=== PATIENT | male | born 1955 | race Caucasian/White ===

== ENCOUNTER → 2016-09-18 | Outpatient (CLI) | payer BC | LOC: GMAM 11:01 | PROVIDERS: ATTEND Family Medicine | DX: E03.9 Hypothyroidism, unspecified (principal); M10.9 Gout, unspecified ==

== ENCOUNTER → 2017-05-07 | Outpatient (CLI) | payer BC | END | disposition home or self-care (01) | LOC: GMAM 10:05 | PROVIDERS: ATTEND Family Medicine | DX: E03.9 Hypothyroidism, unspecified (principal); Z12.5 Encounter for screening for malignant neoplasm of prostate; M10.9 Gout, unspecified; E55.9 Vitamin D deficiency, unspecified ==

== ENCOUNTER → 2018-02-18 | Outpatient (CLI) | payer BC | LOC: GMAM 10:31 | PROVIDERS: ATTEND Family Medicine | DX: E55.9 Vitamin D deficiency, unspecified (principal); E03.9 Hypothyroidism, unspecified; Z12.5 Encounter for screening for malignant neoplasm of prostate ==

== ENCOUNTER → 2018-06-03 | Outpatient (CLI) | payer OTHER | LOC: LAB.O 07:34 | PROVIDERS: ATTEND Family Medicine | DX: I10 Essential (primary) hypertension (principal); E03.9 Hypothyroidism, unspecified; E11.9 Type 2 diabetes mellitus without complications; E78.5 Hyperlipidemia, unspecified ==

== ENCOUNTER → 2018-11-12 | Outpatient (CLI) | payer BC | LOC: GMAM 10:26 | PROVIDERS: ATTEND Family Medicine | DX: E03.9 Hypothyroidism, unspecified (principal) ==

== ENCOUNTER → 2019-03-02 | Outpatient (CLI) | payer BC | LOC: GMAM 10:23 | PROVIDERS: ATTEND Family Medicine | DX: I20.9 Angina pectoris, unspecified (principal); Z12.5 Encounter for screening for malignant neoplasm of prostate ==

== ENCOUNTER → 2019-06-19 | Outpatient (CLI) | payer OTHER | LOC: GMAM 12:19 | PROVIDERS: ATTEND Family Medicine | DX: Z00.00 Encounter for general adult medical examination without abnormal findings (principal); E11.9 Type 2 diabetes mellitus without complications; E03.9 Hypothyroidism, unspecified ==

== ENCOUNTER 2020-07-30 11:47 | Observation (INO) | payer OTHER ==
[2020-07-30] MEDS ORDERED: guaiFENesin/DEXTROMETH SYRUP 5 ML UD PO ONE (11:56)
[2020-07-30] MEDS ORDERED: BENZONATATE PERLES 100 MG CAP PO ONE (11:56)
--- NOTE | 2020-07-30 12:00 | ED.PDOC ---
History of Present Illness - General Chief Complaint: Respiratory Problem Time Seen by Provider: 07/30/20 11:50 Source: patient, family Exam Limitations: no limitations - History of Present Illness Comments: The patient is a 65 year old with PMH significant for HTN, DM, HLD, CAD, hypothyroidism who presents complaining of cough and coronavirus exposure. He states that he has had cough and chest congestion for one week with subjective fevers and chills. Tmax at home is 99%. He does not feel short of breath except for the cough. He is not producing any sputum. He denies changes to taste/smell, vomiting, diarrhea or any other symptoms. He reports that he was around multiple family members who tested positive for COVID. He does note that he has difficulty laying flat at night to sleep but thinks that it is due to the coughing. No other complaints at this time. Allergies/Adverse Reactions: Allergies Butalbital [From Fiorinal] Allergy (Verified 07/30/20 12:06) Codeine Allergy (Verified 07/30/20 12:06) Metformin Allergy (Verified 07/30/20 12:06) Penicillins Allergy (Verified 07/30/20 12:06) Sulfa Antibiotics Allergy (Verified 07/30/20 12:06) Home Medications: Ambulatory Orders Ibuprofen [Advil] 200 mg PO PRN 12/26/13 Levothyroxine Sodium 175 mcg PO DAILY 12/26/13 Lisinopril 10 mg PO DAILY 12/26/13 Pantoprazole Sodium [Protonix] 40 mg PO DAILY 12/26/13 Rosuvastatin Calcium [Crestor] 10 mg PO DAILY 12/26/13 SITagliptin [Januvia] 50 mg PO DAILY 12/26/13 Aspirin [Aspirin 81] 81 mg PO DAILY #0 tab 12/27/13 Review of Systems - Review of Systems Constitutional: States: chills, fever, malaise EENTM: States: nose congestion Respiratory: States: cough. Denies: short of breath, wheezing Cardiology: Denies: chest pain, edema, palpitations, syncope Gastrointestinal/Abdominal: Denies: abdominal pain, diarrhea, nausea, vomiting Genitourinary: States: no symptoms reported Musculoskeletal: States: no symptoms reported Skin: States: no symptoms reported Neurological: States: no symptoms reported Endocrine: States: no symptoms reported Hematologic/Lymphatic: States: no symptoms reported All other Systems: Reviewed and Negative Past Medical History (General) - Patient Medical History Hx Stroke: Yes - Mini Stroke-12/26/13 Hx Cardiac Disorders: Yes Hx Congestive Heart Failure: No Hx Hypertension: Yes Hx Diabetes: Yes Hx MRSA: No Family Medical History - Family History Mother Family History: No Known Physical Exam - Physical Exam General Appearance: Comfortable, No apparent distress, Obese ENT Exam: normal ENT inspection Neck: non-tender, full range of motion, supple Respiratory: lungs clear, normal breath sounds, no respiratory distress, no accessory muscle use Cardiovascular/Chest: normal peripheral pulses, regular rate, rhythm, no gallop Gastrointestinal/Abdominal: normal bowel sounds Extremity: normal range of motion, non-tender, normal inspection Neurologic: no motor/sensory deficits, alert, normal mood/affect, oriented x 3 Skin Exam: normal color Progress - Progress Progress: 07/30/20 13:08 Patient reassessed. On room air with speaking he has oxygen desaturation to 88% and becomes dyspneic. Will need admit for supplemental oxygen and steroid therapy. Discussed with hospitalist who accepts for admit. - Results/Orders Results/Orders: 07/30/20 13:06 BLOOD CULTURE Stat 07/30/20 13:07 Isolation:Airborne ONCE C-REACTIVE PROTEIN Stat CREATINE PHOSPHOKINASE Stat LD-L/LDH Stat MAGNESIUM Stat D-DIMER,QUANTITATIVE Stat FIBRINOGEN Stat PARTIAL THROMBOPLASTIN TIME Stat 07/30/20 13:08 FERRITIN Stat Laboratory Results - last 24 hr 07/30/20 07/30/20 07/30/20 12:12 12:23 12:23 WBC 5.9 RBC 5.28 Hgb 16.6 Hct 46.8 MCV 88.7 MCH 31.4 H MCHC 35.4 RDW 13.4 Plt Count 166 MPV 7.9 Absolute Neuts (auto) 4.40 Absolute Lymphs (auto) 1.10 Absolute Monos (auto) 0.20 Absolute Eos (auto) 0.10 Absolute Basos (auto) 0.10 Neutrophils % 74.8 Lymphocytes % 18.9 L Monocytes % 4.0 Eosinophils % 1.0 Basophils % 1.3 Sodium 133 L Potassium 3.4 L Chloride 102 Carbon Dioxide 20 L Anion Gap 14.4 BUN 11 Creatinine 0.81 BUN/Creatinine Ratio 13.6 Random Glucose 198 H Serum Osmolality 271.3 L Calcium 8.2 L Troponin I < 0.02 B-Natriuretic Peptide 07/30/20 12:23 WBC RBC Hgb Hct MCV MCH MCHC RDW Plt Count MPV Absolute Neuts (auto) Absolute Lymphs (auto) Absolute Monos (auto) Absolute Eos (auto) Absolute Basos (auto) Neutrophils % Lymphocytes % Monocytes % Eosinophils % Basophils % Sodium Potassium Chloride Carbon Dioxide Anion Gap BUN Creatinine BUN/Creatinine Ratio Random Glucose Serum Osmolality Calcium Troponin I B-Natriuretic Peptide < 15.0 - EKG/XRAY/CT XRAY: chest - no acute findings Departure - Departure Clinical Impression: COVID-19, Acute respiratory failure with hypoxemia Time of Disposition: 13:11 Disposition: Admit Patient Departure Forms: ED Discharge - Pt. Copy, Patient Portal Self Enrollment Referrals: Chidi Vargas MD [Primary Care Provider] - 1-2 Weeks Home Medications: Ambulatory Orders Ibuprofen [Advil] 200 mg PO PRN 12/26/13 Levothyroxine Sodium 175 mcg PO DAILY 12/26/13 Lisinopril 10 mg PO DAILY 12/26/13 Pantoprazole Sodium [Protonix] 40 mg PO DAILY 12/26/13 Rosuvastatin Calcium [Crestor] 10 mg PO DAILY 12/26/13 SITagliptin [Januvia] 50 mg PO DAILY 12/26/13 Aspirin [Aspirin 81] 81 mg PO DAILY #0 tab 12/27/13 Decision To Admit - Decistion To Admit Decision to Admit Reason: Admit from ER Decision to Admit Date: 07/30/20 Decision to Admit Time: 13:11
--- NOTE | 2020-07-30 12:14 | RAD ---
EXAM: Chest,1 View CLINICAL INDICATION: Cough COMPARISON: 12/26/2013 FINDINGS: A single view of the chest was obtained. The heart size is normal. The pulmonary vascularity is unremarkable. The lungs are clear. There is no consolidation, infiltrate, pleural effusion, or pneumothorax. IMPRESSION: No evidence of active pulmonary disease. Electronically signed by: Hesham Barton MD 07/30/2020 12:12 PM [facility]
[2020-07-30] MEDS ORDERED: DEXAMETHASONE INJ 10 MG/ML VIAL IV ONE (13:12)
--- NOTE | 2020-07-30 13:45 | HP ---
SUPERVISING PHYSICIAN: Chidi Vargas MD CHIEF COMPLAINT: Covid infection, increasing worsening shortness of breath and cough. HISTORY OF PRESENT ILLNESS: Mr. Whitney is a 65 year-old male with a significant past medical history of hypertension, diabetes mellitus, cardiovascular disease, hypothyroidism, who presents to the Emergency Room complaining of a cough and previous coronavirus exposure. He endorses that he has had a cough and chest congestion for over a week with subjective fevers. He says he notes mainly he feels short of breath when he coughs. He denies nausea, vomiting or diarrhea. He has multiple family members that tested positive for Covid in the last week. He has been having some difficulty laying flat at night to sleep. Laboratory: he did positive on nasal swab for Covid. CBC with white count of 5,100 with low lymphocytic count. Coagulation study showed a normal D- dimer with elevated fibrinogen. Chemistries showed hyponatremia with a sodium of 133, potassium 3.4, creatinine 0.81. Troponin less than 0.02. Initial C- reactive protein was 2.6. Blood cultures were completed and he was then x-rayed with a single view chest and per radiology interpretation showed no evidence of acute cardiopulmonary disease. His vital signs initially in the Emergency Room showed 89% saturation on room air after breathing treatments and initial treatment used he only improved to 91%. He was hemodynamically stable with blood pressure 150/76, afebrile initially at 98.5. Given his recent exposure and showing hypoxia on room air at 89% and his multiple comorbidities, his age, he will be placed in observation for further treatment of Covid pneumonitis. He was placed in observation in stable condition. PAST MEDICAL HISTORY: 1. Hypertension. 2. Diabetes mellitus type 2. 3. Hyperlipidemia. 4. Hypothyroidism. 5. Gastroesophageal reflux disease. 6. Coronary artery disease. PAST SURGICAL HISTORY: 1. Cholecystectomy in 2006. 2. Colonoscopy in 2007. CURRENT MEDICATIONS: 1. Jardiance 10 mg daily. 2. Aspirin 81 mg daily. 3. Amlodipine 2.5 mg daily. 4. Crestor 10 mg daily. 5. Protonix 40 mg daily. 6. Lisinopril 10 mg daily. 7. Levothyroxine 175 mcg daily. ALLERGIES: Butalbital with codeine. Metformin. Penicillin. Sulfa antibiotics. FAMILY HISTORY: Significant for heart disease, diabetes and cerebrovascular accident. SOCIAL HISTORY: The patient works as an life insurance salesperson. He is . He has 2 grown children. He is a nonsmoker, nondrinker. REVIEW OF SYSTEMS: CONSTITUTIONAL: Positive for general malaise, fevers, chills. HEENT: Positive for nasal congestion, negative for headaches. vision changes, sore throat. earaches. CHEST: Positive for cough, increasing shortness of breath. HEART: Denies chest pain, palpitations, syncopal episodes. ABDOMEN: Denies nausea, vomiting, diarrhea or constipation, abdominal pains. GENITOURINARY: Denies dysuria, hematuria or polyuria. MUSCULOSKELETAL: Denies arthralgias, joint swelling. SKIN: Denies lesions, rashes, unexplained changes. NEUROLOGIC: Denies ataxia, seizures, paresthesias or other focal deficits.. HEMATOLOGICAL: Denies unexplained bleeding, easy bruising or transfusion reactions. PHYSICAL EXAMINATION: VITAL SIGNS: Oxygen saturation 89% on room air with respirations of 22 to 24. Blood pressure 150/76, heart rate 100, temperature 98.5. GENERAL: The patient looks to be comfortable and resting in no acute distress. He is obese. HEENT: Tympanic membranes clear bilaterally. Oropharynx pink, moist without lesions. NECK: Supple, non-tender, full range of motion. No jugular venous distention. CHEST: Lungs sounds just diminished towards the bases. No obvious rhonchi or wheezing or rales. He does have a dry cough. CARDIOVASCULAR: Regular rate and rhythm without appreciable murmurs, rubs, or gallops. ABDOMEN: Obese, soft, non-tender, positive bowel sounds. EXTREMITIES: Without cyanosis, clubbing, or edema. NEUROLOGIC: He is alert and oriented x 2. Cranial nerves II through XII are grossly intact. Facial features are symmetrical. Extraocular movements are within normal limits, no nystagmus. SKIN: Warm, pink and dry. LABORATORY: White count 5,900, hemoglobin 16.6, hematocrit 46.8, platelet count 166,000, differential shows to be without a left shift but his lymphocytic count is low. Coagulation studies showed a normal D-dimer at 174 with normal PT/PTT. Fibrinogen is elevated at 409. Chemistries showed a mild hyponatremia and hypokalemia with sodium 133, potassium 3.4. BUN 11, creatinine 0.81, glucose 94, calcium 8.2, magnesium 1.9, troponin less than 0.02. LDH 126, C-reactive protein 2.6. BNP less than 15. MICROBIOLOGY: Nasal swab was positive for Covid. Blood cultures pending. RADIOLOGY: Chest x-ray per radiology interpretation initially showed on single view chest, no evidence of active pulmonary disease. ASSESSMENT: 1. Covid pneumonitis with developing pneumonia. 2. Hypertension. 3. Electrolyte imbalance to include hypokalemia, hyponatremia. 4. History of diabetes mellitus type 2. 5. Hyperlipidemia. 6. Hypothyroidism. 7. Gastroesophageal reflux disease. 8. Coronary artery disease. PLAN: Mr. Whitney is going to be placed in observation initially for further treatment and evaluation of Covid pneumonitis with concerns for developing pneumonia. Given his advanced age at 65 as well as his underlying comorbidities and obesity, he certainly is at a higher risk. We will start him on Remdesivir, azithromycin, Rocephin, Decadron, Align, Protonix. He will be on a sliding scale per insulin protocol. He will be on Lovenox. He will also be on breathing treatments with albuterol inhaler and aggressive pulmonary hygiene. We will resume his home medications as well as the current level of care. I anticipate his length of stay to be at least 1 to 2 days. Until we can transition patient to outpatient management, we will continue to monitor and treat as needed. #[id number] [facility]
[2020-07-30] MEDS ORDERED: MAGNESIUM HYDROXIDE 30 ML UD PO PRN (14:55)
[2020-07-30] MEDS ORDERED: SODIUM CHLORIDE 0.9% (FLUSH) 10 ML SYG IV PRN (14:55)
[2020-07-30] MEDS ORDERED: ONDANSETRON INJ 4 MG/2 ML VIAL IV PRN (14:55)
[2020-07-30] MEDS ORDERED: ACETAMINOPHEN 325 MG TAB PO PRN (14:55)
[2020-07-30] MEDS ORDERED: IV SET AND CAP CHANGE INJ INJ SCH (15:00)
[2020-07-30] MEDS ORDERED: REMDESIVIR 200 MG in SODIUM CHLORIDE 0.9% 250ML 250 ML IVPB SCH (15:00)
[2020-07-30] MEDS ORDERED: AZITHROMYCIN IV 500 MG VIAL IVPB ONE (15:58)
[2020-07-30] MEDS ORDERED: SODIUM CHLORIDE 0.9% 250ML 250 ML ONE ×2 (15:58→16:01)
[2020-07-30] MEDS ORDERED: SODIUM CHL 0.9% 50ML MIN-BAG+ 50 ML IVPB ONE (15:58)
[2020-07-30] MEDS ORDERED: cefTRIAXone SODIUM 1 GM VIAL ONE (15:58)
[2020-07-30] MEDS ORDERED: REMDESIVIR 200 MG ONE (16:01)
[2020-07-30] MEDS: cefTRIAXone SODIUM 1 GM in SODIUM CHL 0.9% 50ML MIN-BAG+ 50 ML IVPB SCH (16:12)
[2020-07-30] MEDS: AZITHROMYCIN IV 500 MG in SODIUM CHLORIDE 0.9% 250ML 250 ML IVPB SCH (16:45)
[2020-07-30] MEDS ORDERED: ALBUTEROL INHALER 64 PUFF/8GM INH PRN (18:51)
[2020-07-30] MEDS: ALBUTEROL INHALER 64 PUFF/8GM INH SCH (20:40)
[2020-07-30] MEDS: ENOXAPARIN SODIUM 40 MG/0.4 ML SYG SUBCU SCH (20:49)
[2020-07-30] MEDS: guaiFENesin ER TAB 600 MG TAB PO SCH (20:50)
[2020-07-31] MEDS: PANTOPRAZOLE SODIUM IV 40 MG VIAL IV SCH (05:33)
[2020-07-31] MEDS ORDERED: amLODIPine BESYLATE 5 MG TAB ONE (08:18)
[2020-07-31] MEDS ORDERED: REMDESIVIR IV 100 MG VIAL ONE (08:19)
[2020-07-31] MEDS ORDERED: SODIUM CHLORIDE 0.9% 250ML 250 ML ONE ×2 (08:19→15:29)
[2020-07-31] MEDS: NON-FORMULARY MEDICATION 1 EA MIS (Amlodipine Besylate [Norvasc] 2.5 MG) PO SCH (09:13)
[2020-07-31] MEDS: LISINOPRIL 10 MG TAB PO SCH (09:13)
[2020-07-31] MEDS: guaiFENesin ER TAB 600 MG TAB PO SCH ×2 (09:13→20:34)
[2020-07-31] MEDS: ASPIRIN (ENTERIC COATED) 81 MG TAB PO SCH (09:13)
[2020-07-31] MEDS: BIFIDOBACTERIUM INFANTIS 4 MG CAP PO SCH (09:13)
[2020-07-31] MEDS: REMDESIVIR 100 MG in SODIUM CHLORIDE 0.9% 250ML 250 ML IVPB SCH (09:14)
[2020-07-31] MEDS: DEXAMETHASONE INJ 10 MG/ML VIAL IV SCH (09:14)
[2020-07-31] MEDS: NON-FORMULARY MEDICATION 1 EA MIS (Empagliflozin [Jardiance] 10 MG) PO SCH (09:15)
[2020-07-31] MEDS: NON-FORMULARY MEDICATION 1 EA MIS (Levothyroxine Sodium [Levothyroxine Sodium] 175 MCG) PO SCH (09:15)
[2020-07-31] MEDS: NON-FORMULARY MEDICATION 1 EA MIS (Rosuvastatin Calcium [Crestor] 10 MG) PO SCH (09:15)
[2020-07-31] MEDS: ALBUTEROL INHALER 64 PUFF/8GM INH SCH ×5 (10:30→20:20)
[2020-07-31] MEDS: guaiFENesin/DEXTROMETH SYRUP 5 ML UD PO PRN ×2 (11:30→20:31)
[2020-07-31] MEDS ORDERED: AZITHROMYCIN IV 500 MG VIAL IVPB ONE (15:29)
[2020-07-31] MEDS ORDERED: SODIUM CHL 0.9% 50ML MIN-BAG+ 50 ML IVPB ONE (15:30)
[2020-07-31] MEDS ORDERED: cefTRIAXone SODIUM 1 GM VIAL ONE (15:30)
[2020-07-31] MEDS: AZITHROMYCIN IV 500 MG in SODIUM CHLORIDE 0.9% 250ML 250 ML IVPB SCH (15:48)
[2020-07-31] MEDS: cefTRIAXone SODIUM 1 GM in SODIUM CHL 0.9% 50ML MIN-BAG+ 50 ML IVPB SCH (15:48)
[2020-07-31] MEDS ORDERED: TEMAZEPAM 15 MG CAP PO PRN (17:26)
[2020-07-31] MEDS ORDERED: BENZONATATE PERLES 100 MG CAP PO PRN (17:26)
--- NOTE | 2020-07-31 18:51 | PN ---
SUPERVISING PHYSICIAN: Chidi Vargas MD DATE: 07/31/20 SUBJECTIVE: The patient says he is feeling a little bit better today. He is still having some shortness of breath, more so just trying to take a deep breath. He is not in any distress. He has had no chest pain, nausea or vomiting. OBJECTIVE: VITAL SIGNS: Temperature 97.6, pulse 90, blood pressure 133/86, respirations 16, saturation 96% on room air. GENERAL: The patient is resting comfortably, in no acute distress. CHEST: Lung sounds are diminished towards the bases. No obvious rales, rhonchi or wheezing. HEART: Regular rate and rhythm. ABDOMEN: Obese, but soft and nontender. Positive bowel sounds. EXTREMITIES: No edema. NEUROLOGIC: Alert and oriented times three. LABORATORY: CBC shows white count 7,400, hemoglobin and hematocrit are stable. Platelet count 189,000. Differential does show a slight left shift. Coagulation studies show continued normal D-dimer in normal limits at 264. Fibrinogen 418. Chemistries show normal electrolytes, normal liver functions. Calcium and magnesium are normal. C-reactive protein down to 2.5. MICROBIOLOGY: Blood cultures are negative at 24 hours. RADIOLOGY: No additional radiographic studies. ASSESSMENT: 1. COVID pneumonitis with developing pneumonia. 2. Hypertension. 3. Electrolyte imbalance to include hypokalemia, hyponatremia. 4. History of diabetes mellitus, type 2. 5. Hyperlipidemia. 6. Hypothyroidism. 7. Gastroesophageal reflux disease. 8. Coronary artery disease. PLAN: We will continue with current treatment plan for COVID protocol on azithromycin, Rocephin, Remdesivir, Decadron, albuterol as needed, Protonix and Align. I anticipate hopefully being able to discharge him tomorrow if he is maintaining his O2 saturations on room air. Until the patient can transition to outpatient management, we will continue to monitor and treat as needed. #[id number] [facility]
[2020-07-31] MEDS ORDERED: ENOXAPARIN SODIUM 40 MG/0.4 ML SYG SUBCU ONE (19:11)
[2020-07-31] MEDS ORDERED: guaiFENesin ER TAB 600 MG TAB ONE (19:11)
[2020-07-31] MEDS: ENOXAPARIN SODIUM 40 MG/0.4 ML SYG SUBCU SCH (20:31)
[2020-08-01] MEDS: PANTOPRAZOLE SODIUM IV 40 MG VIAL IV SCH (06:02)
[2020-08-01] MEDS ORDERED: AZITHROMYCIN 250 MG TAB PO ONE (07:16)
[2020-08-01] MEDS ORDERED: CEFDINIR 300 MG CAP PO ONE (07:16)
[2020-08-01] MEDS ORDERED: DEXAMETHASONE INJ 10 MG/ML VIAL ONE (07:48)
[2020-08-01] MEDS ORDERED: BIFIDOBACTERIUM INFANTIS 4 MG CAP ONE (07:49)
[2020-08-01] MEDS ORDERED: ASPIRIN (ENTERIC COATED) 81 MG TAB PO ONE (07:49)
[2020-08-01] MEDS ORDERED: guaiFENesin ER TAB 600 MG TAB ONE (07:49)
[2020-08-01] MEDS ORDERED: amLODIPine BESYLATE 5 MG TAB ONE (07:49)
[2020-08-01] MEDS ORDERED: REMDESIVIR IV 100 MG VIAL ONE (07:50)
[2020-08-01] MEDS ORDERED: LISINOPRIL 10 MG TAB ONE (07:50)
[2020-08-01] MEDS ORDERED: SODIUM CHLORIDE 0.9% 250ML 250 ML ONE (07:50)
[2020-08-01] MEDS ORDERED: SODIUM CHLORIDE 0.9% (FLUSH) 10 ML SYG ONE (07:58)
[2020-08-01] MEDS: DEXAMETHASONE INJ 10 MG/ML VIAL IV SCH (08:14)
[2020-08-01] MEDS: BIFIDOBACTERIUM INFANTIS 4 MG CAP PO SCH (08:15)
[2020-08-01] MEDS: NON-FORMULARY MEDICATION 1 EA MIS (Amlodipine Besylate [Norvasc] 2.5 MG) PO SCH (08:15)
[2020-08-01] MEDS: guaiFENesin ER TAB 600 MG TAB PO SCH (08:15)
[2020-08-01] MEDS: NON-FORMULARY MEDICATION 1 EA MIS (Empagliflozin [Jardiance] 10 MG) PO SCH (08:15)
[2020-08-01] MEDS: ASPIRIN (ENTERIC COATED) 81 MG TAB PO SCH (08:15)
[2020-08-01] MEDS: NON-FORMULARY MEDICATION 1 EA MIS (Levothyroxine Sodium [Levothyroxine Sodium] 175 MCG) PO SCH (08:16)
[2020-08-01] MEDS: REMDESIVIR 100 MG in SODIUM CHLORIDE 0.9% 250ML 250 ML IVPB SCH (08:16)
[2020-08-01] MEDS: LISINOPRIL 10 MG TAB PO SCH (08:16)
[2020-08-01] MEDS: NON-FORMULARY MEDICATION 1 EA MIS (Rosuvastatin Calcium [Crestor] 10 MG) PO SCH (08:16)
[2020-08-01] MEDS: ALBUTEROL INHALER 64 PUFF/8GM INH SCH (09:01)
[2020-08-01 10:18] VITALS: BP 122/77; TEMP 97.7; O2SAT 97
[2020-08-01] MEDS ORDERED: LEVOTHYROXINE SODIUM 0.1 MG, LEVOTHYROXINE SODIUM 0.075 MG PO SCH ×2 (12:00)
--- NOTE | 2020-08-01 15:09 | DS ---
SUPERVISING PHYSICIAN: Luis Kimball MD ADMISSION DIAGNOSIS: 1. COVID pneumonitis with developing pneumonia. 2. Hypertension. 3. Electrolyte imbalance to include hypokalemia, hyponatremia. 4. History of diabetes mellitus type 2. 5. Hyperlipidemia. 6. Hypothyroidism. 7. Gastroesophageal reflux disease. 8. Coronary artery disease. DISCHARGE DIAGNOSIS: 1. COVID pneumonitis with no evidence of pneumonia on discharge. 2. Hypertension, stable. 3. Electrolyte imbalance to include hypokalemia, hyponatremia, resolved and now at baseline. 4. History of diabetes mellitus, type 2. 5. Hyperlipidemia. 6. Hypothyroidism. 7. Gastroesophageal reflux disease. 8. Coronary artery disease. REASON FOR ADMISSION: Mr. Whitney is a 65 year-old male with a significant past medical history of hypertension, diabetes mellitus, cardiovascular disease, hypothyroidism, who presents to the Emergency Room complaining of a cough and previous coronavirus exposure. He endorses that he has had a cough and chest congestion for over a week with subjective fevers. He says he notes mainly he feels short of breath when he coughs. He denies nausea, vomiting or diarrhea. He has multiple family members that tested positive for COVID in the last week. He has been having some difficulty laying flat at night to sleep. Laboratory: He did test positive on nasal swab for COVID. CBC with white count of 5,100 with low lymphocytic count. Coagulation study showed a normal D-dimer with elevated fibrinogen. Chemistries showed hyponatremia with a sodium of 133, potassium 3.4, creatinine 0.81. Troponin less than 0.02. Initial C-reactive protein was 2.6. Blood cultures were completed and he was then x- rayed with a single view chest and per radiology interpretation showed no evidence of acute cardiopulmonary disease. His vital signs initially in the Emergency Room showed 89% saturation on room air after breathing treatments and initial treatment used he only improved to 91%. He was hemodynamically stable with blood pressure 150/76, afebrile initially at 98.5. Given his recent exposure and showing hypoxia on room air at 89% and his multiple comorbidities, his age, he will be placed in observation for further treatment of COVID pneumonitis. He was placed in observation in stable condition. LABORATORY: White count on discharge was 7,400, hemoglobin 16.6, hematocrit 46.5, platelet count 189,000. Differential did show a slight left shift with a low lymphocytic count. Coagulation studies showed normal D-dimer at 264, fibrinogen 418, PTT 26.1. Chemistries show normal electrolytes with creatinine 0.74, calcium 8.6, magnesium 2.2. Liver functions were all within normal limits. Troponins less than 0.02. C-reactive protein was down to 2.5. BNP was normal at 15. MICROBIOLOGY: Blood cultures remain negative at 24 hours. He did have a COVID swab that was positive on admission. RADIOLOGY: Chest x-ray per radiologic interpretation of single-view chest show no evidence of active pulmonary disease. HOSPITAL COURSE: Mr. Whitney was admitted for COVID pneumonitis and treated with Remdesivir, azithromycin, Rocephin, Decadron, Protonix, Align and Lovenox. Clinically, he improved during his hospital stay. He remained afebrile and was showing good saturations on room air. At discharge, his temperature was 97.7, pulse 79, blood pressure 122/77, respiratory rate 18, saturation 97% on room air. It showed he had clinically improved well enough and was stable to discharge home and continue with outpatient management. PLAN: Mr. Whitney was discharged on 08/01/20 with instructions to followup with Dr. Vargas as scheduled on 08/04/20 at 10:15 AM or sooner if needed. He was to return to the ER if he had any concerning symptoms. He was to follow COVID isolation as instructed and not return to work until cleared by Dr. Vargas. He is to resume his usual diet which is diabetic diet. He was to increase his activity and increase his pulmonary hygiene. He was to take medications prescribed on discharge which included: 1. Align 4 mg daily. 2. Azithromycin 500 mg daily, #3, no refills. 3. Decadron 60 mg daily, #8, no refills. 4. Guaifenesin as needed [id number]. 5. Cefdinir 300 mg twice a day, #10. 6. Tessalon Perles 200 mg 3 times a day as needed, #15, no refills. 7. Albuterol inhaler as needed q.4h., no refills. In regards to anticoagulant, the patient has no high risk factors and his D- dimer was negative for elevation on admission. Therefore, he was not discharged on any oral anticoagulant at time of discharge. CONDITION ON DISCHARGE: Stable and improving. DISPOSITION: The patient was discharged home. [facility][id number] [facility]
[2020-08-01] MEDS ORDERED: SIMVASTATIN 20 MG TAB PO SCH (21:00)
[2020-08-02] MEDS ORDERED: amLODIPine BESYLATE 5 MG TAB PO SCH (09:00)
== END 2020-08-01 10:50 | disposition home or self-care (01) ==
LOC: ER 11:47 → MS 13:44
PROVIDERS: ADMIT Nurse Practitioner Family; ATTEND Nurse Practitioner Family
DX: U07.1 COVID-19 (principal); J12.89 Other viral pneumonia; J96.01 Acute respiratory failure with hypoxia; I10 Essential (primary) hypertension; E87.8 Other disorders of electrolyte and fluid balance, not elsewhere classified; E87.6 Hypokalemia; E87.1 Hypo-osmolality and hyponatremia; E11.9 Type 2 diabetes mellitus without complications; E78.5 Hyperlipidemia, unspecified; E03.9 Hypothyroidism, unspecified; K21.9 Gastro-esophageal reflux disease without esophagitis; I25.10 Atherosclerotic heart disease of native coronary artery without angina pectoris; Z79.84 Long term (current) use of oral hypoglycemic drugs; Z79.82 Long term (current) use of aspirin; Z79.899 Other long term (current) drug therapy; Z86.73 Personal history of transient ischemic attack (TIA), and cerebral infarction without residual deficits; Z88.0 Allergy status to penicillin; Z88.2 Allergy status to sulfonamides; Z88.6 Allergy status to analgesic agent; Z88.8 Allergy status to other drugs, medicaments and biological substances
CPT/HCPCS: 96366 ×2; 96367 ×2; 96365; 96375 ×2; 96376 ×3; 96372 ×2; Q0144; J0696 ×2; J7050 ×10; J1650 ×2; J1100 ×3; J0456 ×2; A4216 ×2; 85379 ×2; 80048; 80053; 36415 ×6; 85384 ×2; 86140 ×2; 85025 ×2; 82550; 87040 ×2; 82728; 83615 ×2; 83735 ×2; 85730 ×2; 84484; 83880; 71045; 99285; G0378; 87635

== ENCOUNTER 2020-08-07 09:53 | Inpatient (IN) | payer OTHER ==
--- NOTE | 2020-08-07 10:30 | ED.PDOC ---
History of Present Illness - General Chief Complaint: Respiratory Problem Time Seen by Provider: 08/07/20 10:30 - History of Present Illness Initial Comments: PATIENT TESTED POSITIVE ABOUT 10 DAYS AGO FOR COVID WAS BRIEFLY ADMITTED, BUT NEVER REQUIRED O2. HE HAS NOW BEEN GETTING MOR SOB OVER THE LAST 2 DAYS, DENIES ANY RECENT FEVER. PT FEELS LIKE HE HIS WORSENING SOB STARTED AFTER TAKING A TESSOLON TAYLOR. PMHX OF HTN, OBESITY, HYPOTHYROIDISM, ?DM, PREVIOUSLY PRESCRIBED METFORMIN Allergies/Adverse Reactions: Allergies Benzonatate [From Tessalon] Allergy (Verified 08/07/20 10:41) Butalbital [From Fiorinal] Allergy (Verified 08/07/20 10:41) Codeine Allergy (Verified 08/07/20 10:41) Metformin Allergy (Verified 08/07/20 10:41) Penicillins Allergy (Verified 08/07/20 10:41) Sulfa Antibiotics Allergy (Verified 08/07/20 10:41) Home Medications: Ambulatory Orders Ibuprofen [Advil] 200 mg PO Q6H PRN 12/26/13 Levothyroxine Sodium 175 mcg PO DAILY 12/26/13 Lisinopril 10 mg PO DAILY 12/26/13 Pantoprazole Sodium [Protonix] 40 mg PO DAILY 12/26/13 Rosuvastatin Calcium [Crestor] 10 mg PO DAILY 12/26/13 Aspirin [Aspirin 81] 81 mg PO DAILY #0 tab 12/27/13 Amlodipine Besylate [Norvasc] 2.5 mg PO QAM 07/30/20 Empagliflozin [Jardiance] 10 mg PO QAM 07/30/20 Tadalafil 20 mg PO PRN PRN 07/30/20 Albuterol Inhaler [Ventolin Hfa Inhaler] 2 puff INH PRN PRN #1 inh 08/01/20 Albuterol Inhaler [Ventolin Hfa Inhaler] 2 puff INH RTQID inh 08/01/20 Azithromycin 500 mg PO DAILY #3 tab 08/01/20 Benzonatate Perles [Tessalon Perles] 200 mg PO TID PRN #15 cap 08/01/20 Bifidobacterium Infantis [Align] 4 mg PO DAILY cap 08/01/20 Cefdinir [Omnicef] 300 mg PO BID #10 cap 08/01/20 Dexamethasone [Decadron] 6 mg PO DAILY #8 tab 08/01/20 guaiFENesin ER TAB [Mucinex Tab] 600 mg PO BID tab 08/01/20 Review of Systems - Review of Systems Constitutional: States: no symptoms reported EENTM: States: no symptoms reported Respiratory: States: cough, short of breath Cardiology: States: chest pain Gastrointestinal/Abdominal: States: no symptoms reported Genitourinary: States: no symptoms reported Musculoskeletal: States: muscle pain Skin: States: no symptoms reported Neurological: States: no symptoms reported Past Medical History (General) - Patient Medical History Hx Seizures: No Hx Stroke: Yes - Mini Stroke-12/26/13 Hx Asthma: No Hx of COPD: No Hx Cardiac Disorders: Yes Hx Congestive Heart Failure: No Hx Pacemaker: No Hx Hypertension: Yes Hx Thyroid Disease: Yes Hx Diabetes: Yes Hx Gastroesophageal Reflux: Yes Hx Cancer: No Hx MRSA: No - Vaccination History Hx Influenza Vaccination: No Hx Pneumococcal Vaccination: No - Social History Hx Tobacco Use: No Hx Alcohol Use: No Hx Substance Use: No Hx Substance Use Treatment: No Hx Depression: No Hx Physical Abuse: No Hx Emotional Abuse: No - Female History Patient : No Family Medical History - Family History Mother Family History: No Known Physical Exam - Physical Exam General Appearance: Alert, Anxious, Comfortable Eyes, Ears, Nose, Throat Exam: PERRL/EOMI Neck: non-tender Respiratory: chest non-tender, rales - DIFFUSE Cardiovascular/Chest: normal peripheral pulses Gastrointestinal/Abdominal: normal bowel sounds, non tender Extremity: normal range of motion, non-tender, normal inspection, no pedal edema Skin Exam: normal color Progress - Progress Progress: 08/07/20 12:17 discussed with rachid huber, will admit, complete remdezivir therapy. Departure - Departure Clinical Impression: COVID-19 Pneumonia Qualifiers: Pneumonia type: due to unspecified organism Laterality: bilateral Lung location: lower lobe of lung Qualified Code(s): J18.9 - Pneumonia, unspecified organism Time of Disposition: 12:16 Disposition: Admit Patient Condition: Fair Departure Forms: ED Discharge - Pt. Copy, Patient Portal Self Enrollment Referrals: Chidi Vargas MD [Primary Care Provider] - 1-2 Weeks Home Medications: Ambulatory Orders Ibuprofen [Advil] 200 mg PO Q6H PRN 12/26/13 Levothyroxine Sodium 175 mcg PO DAILY 12/26/13 Lisinopril 10 mg PO DAILY 12/26/13 Pantoprazole Sodium [Protonix] 40 mg PO DAILY 12/26/13 Rosuvastatin Calcium [Crestor] 10 mg PO DAILY 12/26/13 Aspirin [Aspirin 81] 81 mg PO DAILY #0 tab 12/27/13 Amlodipine Besylate [Norvasc] 2.5 mg PO QAM 07/30/20 Empagliflozin [Jardiance] 10 mg PO QAM 07/30/20 Tadalafil 20 mg PO PRN PRN 07/30/20 Albuterol Inhaler [Ventolin Hfa Inhaler] 2 puff INH PRN PRN #1 inh 08/01/20 Albuterol Inhaler [Ventolin Hfa Inhaler] 2 puff INH RTQID inh 08/01/20 Azithromycin 500 mg PO DAILY #3 tab 08/01/20 Benzonatate Perles [Tessalon Perles] 200 mg PO TID PRN #15 cap 08/01/20 Bifidobacterium Infantis [Align] 4 mg PO DAILY cap 08/01/20 Cefdinir [Omnicef] 300 mg PO BID #10 cap 08/01/20 Dexamethasone [Decadron] 6 mg PO DAILY #8 tab 08/01/20 guaiFENesin ER TAB [Mucinex Tab] 600 mg PO BID tab 08/01/20
[2020-08-07] MEDS ORDERED: REMDESIVIR 200 MG in SODIUM CHLORIDE 0.9% 250ML 250 ML IVPB ONE (10:58)
[2020-08-07] MEDS ORDERED: SODIUM CHL 0.9% 50ML VIAL 9 ML, ALBUTEROL SULFATE NEBS 7.5 MG, IPRATROPIUM BROMIDE NEBS... NEB ONE ×3 (10:59)
[2020-08-07] MEDS ORDERED: DEXAMETHASONE INJ 4 MG/ML VIAL IV ONE (11:00)
[2020-08-07] MEDS ORDERED: ALBUTEROL SULFATE 2.5 MG/3 ML VIAL NEB ONE (11:20)
--- NOTE | 2020-08-07 11:26 | RAD ---
PROCEDURE:XR CHEST 1 VIEW HISTORY:sob COMPARISON: July 30, 2020 FINDINGS: The heart again appears enlarged.. There are diffuse patchy bilateral pulmonary infiltrates with coarse increased interstitial markings likely secondary to an atypical pneumonia. There is no effusion or pneumothorax There are no acute bony or soft tissue abnormalities. IMPRESSION: Findings consistent with a atypical pneumonia likely secondary to Covid. Electronically signed by: Randall Morris MD 08/07/2020 11:25 AM [facility]
[2020-08-07] MEDS ORDERED: cefTRIAXone SODIUM 2 GM in SODIUM CHL 0.9% 100ML MINI-BAG 100 ML IVPB ONE (12:07)
[2020-08-07] MEDS ORDERED: levoFLOXacin 500 MG TAB PO ONE (12:07)
--- NOTE | 2020-08-07 12:51 | HP ---
SUPERVISING PHYSICIAN: Luis Kimball MD CHIEF COMPLAINT: COVID-19 pneumonia. HISTORY OF PRESENT ILLNESS: This is a 65-year-old male patient who was actually admitted to the hospital on 07/30/20 for COVID pneumonitis. He has been exposed three times to COVID and most recently when he went to his brother's in the last week. His previous admission did not require oxygen at that time, but has been monitoring his O2 sats at home and they actually dropped into the 70s. He took some Tessalon Perles and felt like he had somewhat of a reaction to that as his oxygen saturations stayed in the mid 70s for about 10 to 15 minutes before he recovered into the upper 80s. His initial vital signs showed temperature 98.4, heart rate 16, blood pressure 156/88, respiratory rate 26, O2 88% on 6 liters nasal cannula. Lab was drawn. CBC was unremarkable. D-dimer 194. Chemistry showed sodium 134, potassium 3.2, chloride 96. Glucose 250. Lactic acid was 2.4. Creatinine kinase 382, LD 154, CK-MB 5.3, C-reactive protein 11.3. Blood cultures were drawn. He was given Remdesivir in the Emergency Room as well as Levaquin and ceftriaxone. He was also given some Decadron. He was admitted to the hospital in stable condition. PAST MEDICAL HISTORY: 1. Hypertension. 2. Diabetes mellitus, type 2. 3. Hyperlipidemia. 4. Hypothyroidism. 5. Gastroesophageal reflux disease. 6. Coronary artery disease. PAST SURGICAL HISTORY: 1. Cholecystectomy. 2. Colonoscopy. CURRENT MEDICATIONS. Per the EMR and awaiting verification. ALLERGIES: BUTALBITAL, CODEINE, METFORMIN, PENICILLIN, SULFA ANTIBIOTICS. FAMILY HISTORY: Positive for heart disease, diabetes and CVA. SOCIAL HISTORY: He lives in [place]. He is . He has two children. He denies any tobacco, ETOH or illicit drug use. REVIEW OF SYSTEMS: GENERAL: Positive for fatigue fevers. Negative for weight changes. HEENT: Positive for sinus symptoms. Negative for vision changes or sore throat. RESPIRATORY: Positive for coughing, wheezing, shortness of breath. CARDIAC: Negative for chest pain, palpitations or tachycardia. GASTROINTESTINAL: Negative for nausea, vomiting, diarrhea, constipation. GENITOURINARY: Negative for hematuria, dysuria or polyuria. MUSCULOSKELETAL: Negative for arthralgias, myalgias. SKIN: Negative for lesions or rashes. NEUROLOGIC: Negative for headache, dizziness or seizures. PHYSICAL EXAMINATION: VITAL SIGNS: Temperature 96.7, heart rate 118, blood pressure 117/65, respiratory rate 22 to 24. O2 saturation 88-91% on 3 to 6 liters nasal cannula. GENERAL: This is a 65-year-old male patient who is sitting up in his hospital bed. He is in mild respiratory distress. HEENT: Normocephalic, atraumatic. Pupils are equal and reactive. Oropharynx is clear. NECK: Supple without mass. RESPIRATORY: Diminished breath sounds throughout with a few scattered expiratory wheeze throughout with a few rhonchi. He does get tachypneic with speech and he does have to sit upright. He is unable to lie flat. CARDIOVASCULAR: Tachycardic rate and regular rhythm. Sinus tachycardia on the youth nutritional monitor. GASTROINTESTINAL: Abdomen is soft, nondistended, nontender. Bowel sounds are positive. EXTREMITIES: No cyanosis, clubbing or edema. NEUROLOGIC: Awake, alert and oriented times three. Cranial nerves II-XII are grossly intact as tested. LABORATORY: Labs are as per history of present illness. RADIOLOGY: Chest x-ray shows findings consistent with atypical pneumonia, likely secondary to COVID. The patient refused CT of the chest. IMPRESSION: 1. COVID-19 pneumonitis with concerns for developing bacterial pneumonia, most likely community acquired. He has hypoxia and this is is second admission due to COVID. 2. Hypertension. 3. Electrolyte imbalance. 4. Diabetes mellitus, type 2. 5. Hyperlipidemia. 6. Hypothyroidism. 7. Gastroesophageal reflux disease. 8. Coronary artery disease. PLAN: We will admit the patient to the hospital and continue COVID guidelines including his medications of Remdesivir, azithromycin and ceftriaxone as well as Decadron breathing treatment and Lovenox. His home medications will be restarted when they have been verified. We will continue with aggressive pulmonary hygiene. He will have a proton pump inhibitor for ulcer prophylaxis, Lovenox for DVT prophylaxis. We will continue to monitor him close and follows as needed. [facility][id number] [facility]
[2020-08-07] MEDS ORDERED: ACETAMINOPHEN 325 MG TAB PO PRN (13:48)
[2020-08-07] MEDS ORDERED: ONDANSETRON INJ 4 MG/2 ML VIAL IV PRN (13:48)
[2020-08-07] MEDS ORDERED: SODIUM CHLORIDE 0.9% (FLUSH) 10 ML SYG IV PRN (13:48)
[2020-08-07] MEDS ORDERED: ALBUTEROL SULFATE 2.5 MG/3 ML VIAL NEB PRN (13:48)
[2020-08-07] MEDS ORDERED: AZITHROMYCIN IV 500 MG in SODIUM CHLORIDE 0.9% 250ML 250 ML IVPB ONE (13:52)
[2020-08-07] MEDS ORDERED: SODIUM CHLORIDE 0.9% 250ML 250 ML ONE (15:14)
[2020-08-07] MEDS ORDERED: AZITHROMYCIN IV 500 MG VIAL IVPB ONE (15:14)
[2020-08-07] MEDS: IV SET AND CAP CHANGE INJ INJ SCH (15:29)
[2020-08-07] MEDS: IPRATROPIUM/ALBUTEROL 3 ML VIAL INH SCH ×2 (16:55→20:35)
[2020-08-07] MEDS ORDERED: GLUCAGON INJ 1 MG VIAL SUBCU PRN (17:10)
[2020-08-07] MEDS ORDERED: DEXTROSE 50% 25 GM/50 ML SYG IV PRN (17:10)
[2020-08-07] MEDS ORDERED: POTASSIUM CHLORIDE 20 MEQ TAB PO ONE (17:10)
[2020-08-07] MEDS: guaiFENesin ER TAB 600 MG TAB PO SCH (20:28)
[2020-08-07] MEDS: ENOXAPARIN SODIUM 40 MG/0.4 ML SYG SUBCU SCH (20:28)
[2020-08-07] MEDS: SODIUM CHLORIDE 0.9% (FLUSH) 10 ML SYG IV SCH (20:28)
[2020-08-07] MEDS: INSULIN LISPRO 100 UNITS/ML PEN SUBCU SCH (21:05)
[2020-08-08] MEDS ORDERED: PANTOPRAZOLE SODIUM IV 40 MG VIAL IV SCH (06:30)
[2020-08-08] MEDS ORDERED: REMDESIVIR IV 100 MG VIAL ONE (07:30)
[2020-08-08] MEDS ORDERED: cefTRIAXone SODIUM 1 GM VIAL ONE (07:30)
[2020-08-08] MEDS ORDERED: SODIUM CHLORIDE 0.9% 250ML 250 ML ONE (07:30)
[2020-08-08] MEDS ORDERED: SODIUM CHL 0.9% 50ML MIN-BAG+ 50 ML IVPB ONE (07:31)
--- NOTE | 2020-08-08 08:02 | RAD ---
EXAM DESCRIPTION: Chest,1 View CLINICAL HISTORY: covid COMPARISON: August 07, 2020 IMPRESSION: Single AP portable upright view of the chest shows enlargement of the cardiac silhouette without pulmonary vascular congestion. Lungs are mildly hypoaerated. Bilateral patchy airspace infiltrates are again seen and appear mildly improved compared to previous exam predominantly in the lower lung reveles left greater than right. No pleural effusion or pneumothorax is identified. Electronically signed by: Rocco Serrano MD 08/08/2020 8:00 AM [employer]
[2020-08-08] MEDS ORDERED: IPRATROPIUM/ALBUTEROL 3 ML VIAL NEB ONE (08:24)
[2020-08-08] MEDS: DEXAMETHASONE INJ 10 MG/ML VIAL IV SCH (08:49)
[2020-08-08] MEDS: BIFIDOBACTERIUM INFANTIS 4 MG CAP PO SCH (08:49)
[2020-08-08] MEDS: cefTRIAXone SODIUM 1 GM in SODIUM CHL 0.9% 50ML MIN-BAG+ 50 ML IVPB SCH (08:49)
[2020-08-08] MEDS: guaiFENesin ER TAB 600 MG TAB PO SCH ×2 (08:49→20:33)
[2020-08-08] MEDS: INSULIN LISPRO 100 UNITS/ML PEN SUBCU SCH ×4 (08:56→20:51)
[2020-08-08] MEDS: SODIUM CHLORIDE 0.9% (FLUSH) 10 ML SYG IV SCH ×2 (09:08→20:34)
[2020-08-08] MEDS: AZITHROMYCIN IV 500 MG in SODIUM CHLORIDE 0.9% 250ML 250 ML IVPB SCH (09:08)
[2020-08-08] MEDS: IPRATROPIUM/ALBUTEROL 3 ML VIAL INH SCH ×4 (09:35→23:01)
[2020-08-08] MEDS: REMDESIVIR 100 MG in SODIUM CHLORIDE 0.9% 250ML 250 ML IVPB SCH (12:17)
--- NOTE | 2020-08-08 18:57 | PN ---
SUPERVISING PHYSICIAN: Beata Leung MD DATE: 08/08/20 SUBJECTIVE: The patient is sitting up in bed. He feels much better than he did yesterday although he still has quite a bit of coughing and shortness of breath. He does feel like his cough is breaking up the phlegm in his chest. OBJECTIVE: VITAL SIGNS: Temperature 96.8, heart rate 87, blood pressure 114/76, respiratory rate 18, O2 saturation 91% on 3 liters nasal cannula. It came up to 94% on 5 liters nasal cannula. RESPIRATORY: A few scattered rhonchi and diminished at the bases. CARDIAC: Regular rate and rhythm. NEUROLOGIC: Awake, alert and oriented times three. LABORATORY: CBC is unremarkable with the exception that he has a left shift on differential. Fibrinogen 633, D-dimer 125. Sodium low at 134, calcium 8.1. The remainder of his electrolytes are within normal limits. Repeat lactic acid is 1.5. Creatinine kinase 182, C-reactive protein 9.1. MICROBIOLOGY: Preliminary blood cultures show no growth after 24 hours. RADIOLOGY: Chest x-ray shows single AP portable upright view chest shows enlargement of the cardiac silhouette without pulmonary vascular congestion. Lungs are mildly hypo-aerated. Bilateral patchy airspace infiltrates are again seen and appear mildly improved compared to previous exam predominantly in the lower lung reveles, left greater than right. No pleural effusion or pneumothorax is identified. ASSESSMENT: 1. COVID-19 pneumonitis with concerns for developing bacterial pneumonia, most likely community acquired. He has hypoxia and this is is second admission due to COVID. 2. Hypertension. 3. Electrolyte imbalance, improved. 4. Diabetes mellitus, type 2. 5. Hyperlipidemia. 6. Hypothyroidism. 7. Gastroesophageal reflux disease. 8. Coronary artery disease. PLAN: We will continue present supportive care including COVID guidelines including medications, labs and x-rays. I will monitor those closely. He will have good pulmonary hygiene. We will continue to wean his oxygen. #[id number] [facility]
[2020-08-08] MEDS: ENOXAPARIN SODIUM 40 MG/0.4 ML SYG SUBCU SCH (20:33)
[2020-08-09] MEDS ORDERED: PANTOPRAZOLE SODIUM IV 40 MG VIAL ONE (04:34)
[2020-08-09] MEDS: PANTOPRAZOLE SODIUM TAB 40 MG PO SCH (06:10)
--- NOTE | 2020-08-09 07:08 | RAD ---
EXAM: XR Chest, 1 View CLINICAL HISTORY: covid TECHNIQUE: Frontal view of the chest. COMPARISON: 08/08/2020 FINDINGS: Lungs: Stable bilateral interstitial and patchy airspace disease with stable confluent opacification in the left base. Pleural space: No pneumothorax or pleural effusion. Heart: Stable cardiac shadow. Mediastinum: No abnormality noted. Bones/joints: No osseous destruction or sclerosis noted. IMPRESSION: Stable abnormalities as above. Electronically signed by: Nelly Garrett MD 08/09/2020 7:07 AM INTER[employer]ET[employer]
[2020-08-09] MEDS: INSULIN LISPRO 100 UNITS/ML PEN SUBCU SCH ×4 (07:30→20:35)
[2020-08-09] MEDS: cefTRIAXone SODIUM 1 GM in SODIUM CHL 0.9% 50ML MIN-BAG+ 50 ML IVPB SCH (08:30)
[2020-08-09] MEDS: CALCIUM CARBONATE (ANTACID) 500 MG CHEWABLE TAB PO PRN ×3 (08:51→20:35)
[2020-08-09] MEDS: AZITHROMYCIN IV 500 MG in SODIUM CHLORIDE 0.9% 250ML 250 ML IVPB SCH (10:00)
[2020-08-09] MEDS ORDERED: ALBUTEROL INHALER 64 PUFF/8GM INH ONE (11:30)
[2020-08-09] MEDS ORDERED: ALBUTEROL INHALER 64 PUFF/8GM INH PRN (12:15)
[2020-08-09] MEDS: REMDESIVIR 100 MG in SODIUM CHLORIDE 0.9% 250ML 250 ML IVPB SCH (12:31)
[2020-08-09] MEDS: DEXAMETHASONE INJ 10 MG/ML VIAL IV SCH (12:32)
[2020-08-09] MEDS: guaiFENesin ER TAB 600 MG TAB PO SCH ×2 (12:32→20:34)
[2020-08-09] MEDS: BIFIDOBACTERIUM INFANTIS 4 MG CAP PO SCH (12:38)
[2020-08-09] MEDS: SODIUM CHLORIDE 0.9% (FLUSH) 10 ML SYG IV SCH ×2 (12:39→20:36)
[2020-08-09] MEDS: IPRATROPIUM/ALBUTEROL 3 ML VIAL INH SCH ×2 (13:07→14:39)
[2020-08-09] MEDS ORDERED: CALCIUM CARBONATE (ANTACID) 500 MG CHEWABLE TAB PO ONE (13:20)
[2020-08-09] MEDS: ALBUTEROL INHALER 64 PUFF/8GM INH SCH ×2 (17:00→20:55)
--- NOTE | 2020-08-09 17:51 | PN ---
SUPERVISING PHYSICIAN: Beata Leung MD DATE: 08/09/20 SUBJECTIVE: The patient is sitting up in bed. He continues to feel better although he does feel weak and short of breath. We discussed his discharge plan. OBJECTIVE: VITAL SIGNS: Temperature 97.4, heart rate 81, blood pressure 151/86, respiratory rate 18, O2 saturation 93% on 3 liters nasal cannula. RESPIRATORY: Diminished breath sounds throughout. CARDIAC: Regular rate and rhythm. NEUROLOGIC: Awake, alert and oriented times three. LABORATORY: CBC is basically unremarkable with the exception that he has a left shift on differential. Fibrinogen 554, D-dimer less than 100. Electrolytes are basically within normal limits. Creatinine kinase 134, C-reactive protein 4.2. MICROBIOLOGY: Preliminary blood cultures show no growth after 48 hours. RADIOLOGY: Chest x-ray shows stable abnormalities as above. All other labs and films have been reviewed via the EMR. ASSESSMENT: 1. COVID-19 pneumonitis with concerns for developing bacterial pneumonia, most likely community acquired. He has hypoxia and this is is second admission due to COVID. 2. Hypertension. 3. Electrolyte imbalance, improved. 4. Diabetes mellitus, type 2. 5. Hyperlipidemia. 6. Hypothyroidism. 7. Gastroesophageal reflux disease. 8. Coronary artery disease. PLAN: We will continue present supportive care. We will continue to wean is oxygen as tolerated. I have ordered and lab and chest x-ray for in the morning. Hopefully, he can be discharged tomorrow or the next day. We will continue with COVID guidelines including medications. He will have aggressive pulmonary hygiene. #[id number] [facility]
[2020-08-09] MEDS: ENOXAPARIN SODIUM 40 MG/0.4 ML SYG SUBCU SCH (20:34)
[2020-08-10] MEDS: PANTOPRAZOLE SODIUM TAB 40 MG PO SCH ×2 (05:42→10:54)
--- NOTE | 2020-08-10 06:40 | RAD ---
EXAM DESCRIPTION: Chest,1 View CLINICAL HISTORY: covid COMPARISON: 08/09/2020 FINDINGS: Single frontal radiograph view of the chest. Cardiomediastinal silhouette: Stable. Lungs: Persistent basilar predominant airspace opacities. No pneumothorax or large effusion. Low lung volumes. Bones: Stable. Upper abdomen: Stable. IMPRESSION: 1. Stable appearance of the chest with basilar predominant airspace opacities. Electronically signed by: Gabriel Hernandez 08/10/2020 6:38 AM PHYSICAL THERAPY AIDE
[2020-08-10] MEDS: cefTRIAXone SODIUM 1 GM in SODIUM CHL 0.9% 50ML MIN-BAG+ 50 ML IVPB SCH (07:49)
[2020-08-10] MEDS: DEXAMETHASONE INJ 10 MG/ML VIAL IV SCH (07:49)
[2020-08-10] MEDS: guaiFENesin ER TAB 600 MG TAB PO SCH ×2 (07:49→21:02)
[2020-08-10] MEDS: BIFIDOBACTERIUM INFANTIS 4 MG CAP PO SCH (07:49)
[2020-08-10] MEDS: SODIUM CHLORIDE 0.9% (FLUSH) 10 ML SYG IV SCH ×2 (07:49→21:02)
[2020-08-10] MEDS: INSULIN LISPRO 100 UNITS/ML PEN SUBCU SCH ×4 (08:00→21:30)
[2020-08-10] MEDS: CALCIUM CARBONATE (ANTACID) 500 MG CHEWABLE TAB PO PRN (08:43)
[2020-08-10] MEDS: AZITHROMYCIN IV 500 MG in SODIUM CHLORIDE 0.9% 250ML 250 ML IVPB SCH (09:17)
[2020-08-10] MEDS: ALBUTEROL INHALER 64 PUFF/8GM INH SCH ×4 (09:27→20:25)
[2020-08-10] MEDS ORDERED: NON-FORMULARY MEDICATION 1 EA MIS (Amlodipine Besylate [Norvasc] 2.5 MG) PO SCH (10:30)
[2020-08-10] MEDS ORDERED: PANTOPRAZOLE SODIUM 40 MG PO SCH (10:30)
[2020-08-10] MEDS ORDERED: NON-FORMULARY MEDICATION 1 EA MIS (Levothyroxine Sodium [Levothyroxine Sodium] 175 MCG) PO SCH (10:30)
[2020-08-10] MEDS ORDERED: NON-FORMULARY MEDICATION 1 EA MIS (Rosuvastatin Calcium [Crestor] 10 MG) PO SCH (10:30)
[2020-08-10] MEDS: amLODIPine BESYLATE 5 MG TAB PO SCH (10:52)
[2020-08-10] MEDS: LISINOPRIL 10 MG TAB PO SCH (10:52)
[2020-08-10] MEDS: LEVOTHYROXINE SODIUM 0.075 MG TAB PO SCH (10:52)
[2020-08-10] MEDS: ASPIRIN (ENTERIC COATED) 81 MG TAB PO SCH (10:53)
[2020-08-10] MEDS: NON-FORMULARY MEDICATION 1 EA MIS (Empagliflozin [Jardiance] 10 MG) PO SCH (10:54)
[2020-08-10] MEDS: LEVOTHYROXINE SODIUM 0.1 MG TAB PO SCH (10:55)
[2020-08-10] MEDS ORDERED: LEVOTHYROXINE SODIUM 0.1 MG TAB ONE (10:57)
[2020-08-10] MEDS: ATORVASTATIN 20 MG TAB PO SCH (10:57)
[2020-08-10] MEDS: guaiFENesin/DEXTROMETH SYRUP 5 ML UD PO PRN ×2 (11:17→21:07)
[2020-08-10] MEDS: REMDESIVIR 100 MG in SODIUM CHLORIDE 0.9% 250ML 250 ML IVPB SCH (11:18)
[2020-08-10] MEDS: IV SET AND CAP CHANGE INJ INJ SCH (13:46)
--- NOTE | 2020-08-10 18:59 | PN ---
SUPERVISING PHYSICIAN: Beata Leung MD DATE: 08/10/20 SUBJECTIVE: The patient is still having some shortness of breath. He was able to ambulate and dropped in the low 80s with little ambulation effort. He has no chest pain, nausea, vomiting, diarrhea. OBJECTIVE: VITAL SIGNS: Temperature 97.7, heart rate 70, blood pressure 116/80, respiratory rate 18, O2 saturation 94% on 3 liters nasal cannula at rest. and with ambulation in the room, on room air he dropped to 87%. CHEST: Lung sounds were fairly clear, just diminished bilaterally toward the bases. CARDIAC: Regular rate and rhythm. ABDOMEN: Obese, soft, non-tender, positive bowel sounds. EXTREMITIES: Without edema. NEUROLOGIC: Alert and oriented times three. LABORATORY: White count 10,000, hemoglobin 17, hematocrit 48.2, platelet count 207,000. Differential does show a left shift. Coagulation studies show D-dimer less than 131, fibrinogen 525. Chemistries show normal electrolytes with creatinine 0.4. Blood sugar between 112 and 204. Liver functions all within normal limits. C-reactive protein 2.1. MICROBIOLOGY: Blood cultures remain negative at 3 days. RADIOLOGY: Repeat chest x-ray this morning per radiology interpretation shows stable appearance of the chest with bibasilar predominant airspace opacities. ASSESSMENT: 1. COVID-19 pneumonitis with concerns for developing pneumonia with continued hypoxia on room air requiring continued 02. . 2. Hypertension, stable. 3. Electrolyte imbalance, resolved. 4. Diabetes mellitus, type 2. 5. Hyperlipidemia. 6. Hypothyroidism. 7. Gastroesophageal reflux disease. 8. Coronary artery disease. PLAN: We will continue with current plan of care. Will look to weaning his oxygen as possible. I would anticipate he will probably discharge in the next day or two. He most likely will need to go home on oxygen. He is on antibiotics currently with Rocephin, azithromycin, he's back on Lovenox, Decadron, guaifenesin, sliding scale, Protonix, Remdesivir which he should finish today. Again, hopefully will be able to discharge him in the next 24-48 hours. Until the, we will continue to monitor and treat as needed. [facility][id number] [facility]
[2020-08-10] MEDS: ENOXAPARIN SODIUM 40 MG/0.4 ML SYG SUBCU SCH (21:01)
[2020-08-11] MEDS: PANTOPRAZOLE SODIUM TAB 40 MG PO SCH ×2 (06:07→06:09)
[2020-08-11] MEDS: LEVOTHYROXINE SODIUM 0.075 MG TAB PO SCH (06:07)
[2020-08-11] MEDS: LEVOTHYROXINE SODIUM 0.1 MG TAB PO SCH (06:08)
[2020-08-11] MEDS ORDERED: LEVOTHYROXINE SODIUM 0.1 MG TAB PO SCH (06:30)
[2020-08-11] MEDS: INSULIN LISPRO 100 UNITS/ML PEN SUBCU SCH ×4 (07:45→20:27)
[2020-08-11] MEDS: ALBUTEROL INHALER 64 PUFF/8GM INH SCH ×4 (08:19→20:38)
[2020-08-11] MEDS: cefTRIAXone SODIUM 1 GM in SODIUM CHL 0.9% 50ML MIN-BAG+ 50 ML IVPB SCH (09:43)
[2020-08-11] MEDS: DEXAMETHASONE INJ 10 MG/ML VIAL IV SCH (09:43)
[2020-08-11] MEDS: amLODIPine BESYLATE 5 MG TAB PO SCH (09:44)
[2020-08-11] MEDS: BIFIDOBACTERIUM INFANTIS 4 MG CAP PO SCH (09:44)
[2020-08-11] MEDS: ATORVASTATIN 20 MG TAB PO SCH (09:44)
[2020-08-11] MEDS: NON-FORMULARY MEDICATION 1 EA MIS (Empagliflozin [Jardiance] 10 MG) PO SCH (09:44)
[2020-08-11] MEDS: ASPIRIN (ENTERIC COATED) 81 MG TAB PO SCH (09:44)
[2020-08-11] MEDS: SODIUM CHLORIDE 0.9% (FLUSH) 10 ML SYG IV SCH ×2 (09:44→20:19)
[2020-08-11] MEDS: LISINOPRIL 10 MG TAB PO SCH (09:44)
[2020-08-11] MEDS: guaiFENesin ER TAB 600 MG TAB PO SCH ×2 (09:44→20:18)
[2020-08-11] MEDS: AZITHROMYCIN IV 500 MG in SODIUM CHLORIDE 0.9% 250ML 250 ML IVPB SCH (10:40)
[2020-08-11] MEDS: REMDESIVIR 100 MG in SODIUM CHLORIDE 0.9% 250ML 250 ML IVPB SCH (13:09)
[2020-08-11] MEDS: guaiFENesin/DEXTROMETH SYRUP 5 ML UD PO PRN ×2 (13:45→19:19)
--- NOTE | 2020-08-11 16:10 | PN ---
SUPERVISING PHYSICIAN: Beata Leung MD DATE: 08/11/20 SUBJECTIVE: The patient seems to be doing well. There is still consideration for sending him today but we don't have any oxygen to send him home on at this point. He still showing some desaturations with ambulation efforts but shows good room air saturations as rest. . OBJECTIVE: VITAL SIGNS: Temperature 98.6, heart rate 85, blood pressure 113/74, respiratory rate 18, O2 saturation 94% on 3 liters nasal cannula at rest. CHEST: Lung sounds were fairly clear, just diminished bilaterally toward the bases. CARDIAC: Regular rate and rhythm. ABDOMEN: Obese, soft, non-tender, positive bowel sounds. EXTREMITIES: Without edema. NEUROLOGIC: Alert and oriented times three. ASSESSMENT: 1. COVID-19 pneumonitis with concerns for developing pneumonia with continued hypoxia on room air requiring continued 02. . 2. Hypertension, stable. 3. Electrolyte imbalance, resolved. 4. Diabetes mellitus, type 2. 5. Hyperlipidemia. 6. Hypothyroidism. 7. Gastroesophageal reflux disease. 8. Coronary artery disease. PLAN: We will continue with aggressive pulmonary hygiene and work to get his oxygen down. I was hoping to send him home today. We are still waiting on the availability for oxygen at discharge. Until we can transition patient to outpatient management, we will continue with that plan of care and anticipate discharge tomorrow and monitor as needed. #[id number] [facility]
[2020-08-11] MEDS: ENOXAPARIN SODIUM 40 MG/0.4 ML SYG SUBCU SCH (20:18)
[2020-08-12] MEDS: LEVOTHYROXINE SODIUM 0.075 MG TAB PO SCH (06:04)
[2020-08-12] MEDS: PANTOPRAZOLE SODIUM TAB 40 MG PO SCH ×2 (06:04)
[2020-08-12] MEDS: LEVOTHYROXINE SODIUM 0.1 MG TAB PO SCH (06:04)
[2020-08-12] MEDS: INSULIN LISPRO 100 UNITS/ML PEN SUBCU SCH ×2 (08:20→12:20)
[2020-08-12] MEDS: ALBUTEROL INHALER 64 PUFF/8GM INH SCH ×2 (09:15→14:00)
[2020-08-12] MEDS: amLODIPine BESYLATE 5 MG TAB PO SCH (10:00)
[2020-08-12] MEDS: LISINOPRIL 10 MG TAB PO SCH (10:01)
[2020-08-12] MEDS: BIFIDOBACTERIUM INFANTIS 4 MG CAP PO SCH (10:01)
[2020-08-12] MEDS: ASPIRIN (ENTERIC COATED) 81 MG TAB PO SCH (10:02)
[2020-08-12] MEDS: NON-FORMULARY MEDICATION 1 EA MIS (Empagliflozin [Jardiance] 10 MG) PO SCH (10:02)
[2020-08-12] MEDS: ATORVASTATIN 20 MG TAB PO SCH (10:02)
[2020-08-12] MEDS: DEXAMETHASONE INJ 10 MG/ML VIAL IV SCH (10:02)
[2020-08-12] MEDS: guaiFENesin ER TAB 600 MG TAB PO SCH (10:02)
[2020-08-12] MEDS: cefTRIAXone SODIUM 1 GM in SODIUM CHL 0.9% 50ML MIN-BAG+ 50 ML IVPB SCH (10:02)
[2020-08-12] MEDS: SODIUM CHLORIDE 0.9% (FLUSH) 10 ML SYG IV SCH (10:03)
[2020-08-12] MEDS: AZITHROMYCIN IV 500 MG in SODIUM CHLORIDE 0.9% 250ML 250 ML IVPB SCH (10:27)
[2020-08-12] MEDS ORDERED: INFLUENZA VIRUS VACC (ADULT) 0.5 ML SYG IM ONE (13:20)
[2020-08-12] MEDS: guaiFENesin/DEXTROMETH SYRUP 5 ML UD PO PRN (14:22)
[2020-08-12 16:11] VITALS: BP 105/70; TEMP 98.5; O2SAT 95
--- NOTE | 2020-08-13 11:36 | DS ---
SUPERVISING PHYSICIAN: Gabriel Leung MD ADMISSION DIAGNOSES: 1. COVID-19 pneumonitis with concerns for developing bacterial pneumonia, most likely community acquired. He has hypoxia and this is is second admission due to COVID. 2. Hypertension. 3. Electrolyte imbalance. 4. Diabetes mellitus, type 2. 5. Hyperlipidemia. 6. Hypothyroidism. 7. Gastroesophageal reflux disease. 8. Coronary artery disease. DISCHARGE DIAGNOSIS: 1. COVID-19 pneumonitis with concerns for developing pneumonia with continued hypoxia on room air requiring continued 02. . 2. Hypertension, stable. 3. Electrolyte imbalance, resolved. 4. Diabetes mellitus, type 2. 5. Hyperlipidemia. 6. Hypothyroidism. 7. Gastroesophageal reflux disease. 8. Coronary artery disease. REASON FOR HOSPITALIZATION: This is a 65-year-old male patient who was actually admitted to the hospital on 07/30/20 for COVID pneumonitis. He has been exposed three times to COVID and most recently when he went to his brother's in the last week. His previous admission did not require oxygen at that time, but has been monitoring his O2 sats at home and they actually dropped into the 70s. He took some Tessalon Perles and felt like he had somewhat of a reaction to that as his oxygen saturations stayed in the mid 70s for about 10 to 15 minutes before he recovered into the upper 80s. His initial vital signs showed temperature 98.4, heart rate 16, blood pressure 156/88, respiratory rate 26, O2 88% on 6 liters nasal cannula. Lab was drawn. CBC was unremarkable. D-dimer 194. Chemistry showed sodium 134, potassium 3.2, chloride 96. Glucose 250. Lactic acid was 2.4. Creatinine kinase 382, LD 154, CK-MB 5.3, C-reactive protein 11.3. Blood cultures were drawn. He was given Remdesivir in the Emergency Room as well as Levaquin and ceftriaxone. He was also given some Decadron. He was admitted to the hospital in stable condition. LABORATORY: White count, final, 10,000. Hemoglobin 17, hematocrit 48.2, platelet count 207,000. Differential does show a left shift. Coagulation studies showed normal D-dimer, fibrinogen low at 525, PT/PTT normal. Chemistries show normal electrolytes with a creatinine 0.84. Blood sugars range between 112 and 208. Liver functions were all within normal limits. C-reactive protein 2.1 which is down from admission of 11.3. MICROBIOLOGY: Blood cultures were negative after 5 days. RADIOLOGY: Chest x-ray on 08/10/90 was showing stable appearance of the chest with basilar predominant airspace opacities. HOSPITAL COURSE: Mr. Whitney was admitted as noted above for complications of Covid infection. He was treated with Rocephin, azithromycin, Remdesivir, Decadron. He did show good response to treatment, although was still requiring oxygen at ambulation as he de-satted down into the 80s. He was showing good response to treatment and was felt to be stable enough to discharge home and continue with outpatient management. On discharge, temperature was 98.5, pulse 76, blood pressure 105/70, respirations 18, oxygen saturation 95% on 2 liter nasal cannula. With ambulation, his saturations went down into the high 80s to low 90s. PLAN: Mr. hWitney was discharged with instructions to followup with Dr. Vargas. He needs to call his office on Saturday to schedule an appointment. Arrangements were made to have oxygen at home. He is to wear oxygen via nasal cannula to maintain his oxygen saturations at 92 to 94%. He was to take his medications as instructed and return to the hospital for any concerning symptoms. No new medications were prescribed at discharge as he completed his full antibiotics as well as his Decadron. He is to continue with albuterol treatments as needed and resume the rest of his medications which included Mucinex, Crestor, Protonix, lisinopril, Levothyroxine, Advil, Jardiance, Align, aspirin and Norvasc. CONDITION ON DISCHARGE: Stable and improved. DISPOSITION: Patient was discharged to home. #[id number] [facility]
== END 2020-08-12 15:20 | disposition home or self-care (01) | DRG 177 ==
LOC: ER 09:53 → MS 12:49 → OBSVTOIN 12:49
PROVIDERS: ADMIT Nurse Practitioner Acute Care; ATTEND Nurse Practitioner Family
PROC: XW033E5 Introduction of Remdesivir Anti-infective into Peripheral Vein, Percutaneous Approach, New Technology Group 5 (ICD-10-PCS; principal; 2020-08-07)
DX: U07.1 COVID-19 (principal); J12.89 Other viral pneumonia; J15.9 Unspecified bacterial pneumonia; R09.02 Hypoxemia; I10 Essential (primary) hypertension; E11.9 Type 2 diabetes mellitus without complications; E78.5 Hyperlipidemia, unspecified; E03.9 Hypothyroidism, unspecified; K21.9 Gastro-esophageal reflux disease without esophagitis; I25.10 Atherosclerotic heart disease of native coronary artery without angina pectoris; Z88.5 Allergy status to narcotic agent; Z88.0 Allergy status to penicillin; Z88.2 Allergy status to sulfonamides; Z88.8 Allergy status to other drugs, medicaments and biological substances; Z79.1 Long term (current) use of non-steroidal anti-inflammatories (NSAID); Z79.82 Long term (current) use of aspirin; Z79.899 Other long term (current) drug therapy; Z86.73 Personal history of transient ischemic attack (TIA), and cerebral infarction without residual deficits